=== PATIENT | female | born 1965 | race Caucasian/White ===

== ENCOUNTER → 2016-07-05 | Outpatient (CLI) | payer OTHER | LOC: HEART 5 09:39 | DX: R00.1 Bradycardia, unspecified (principal); R00.2 Palpitations ==

== ENCOUNTER → 2016-07-21 | Outpatient (CLI) | payer OTHER | LOC: HEART 5 09:45 | DX: I20.9 Angina pectoris, unspecified (principal); R00.1 Bradycardia, unspecified | CPT/HCPCS: 93306 ==